=== PATIENT | female | born 1955 | race American Indian/Alaskan Native ===

== ENCOUNTER 2018-01-07 09:08 | Day surgery (SDC) | payer BC ==
[2017-12-31 11:37] VITALS: BMI 34.2
[2018-01-07 09:33] VITALS: O2SAT 100
[2018-01-07] MEDS ORDERED: Propofol 10 mg/ml Inj (20 ML) ONE (12:03)
[2018-01-07] MEDS ORDERED: Sodium Chloride 0.9% 1,000 ML IV SCH (13:00)
[2018-01-07 13:21] VITALS: RESP 16
[2018-01-07 13:38] VITALS: BP 155/67; PULSE 68; TEMP 97.3
== END 2018-01-07 14:02 | disposition home or self-care (01) ==
LOC: ENDO 09:08
PROVIDERS: ATTEND Internal Medicine Gastroenterology
DX: K31.7 Polyp of stomach and duodenum (principal); K29.70 Gastritis, unspecified, without bleeding; I10 Essential (primary) hypertension; E11.9 Type 2 diabetes mellitus without complications; R10.11 Right upper quadrant pain; R19.7 Diarrhea, unspecified; Z90.49 Acquired absence of other specified parts of digestive tract; Z98.49 Cataract extraction status, unspecified eye; Z90.710 Acquired absence of both cervix and uterus
CPT/HCPCS: 43239; 82948; 88305; 88342; J2704; J7030; J7040